=== PATIENT | female | born 1930 | race Caucasian/White ===

== ENCOUNTER 2017-01-16 21:20 | Emergency (ER) | payer MEDICARE, BC ==
[2017-01-16 21:33] VITALS: RESP 18
[2017-01-16] MEDS ORDERED: DIAZEPAM 5 MG/ML 2 ML SYRINGE IVP STA (22:23)
[2017-01-16 23:30] LABS: Basophils # (A) 0.1 k/uL (0-0.2); Basophils % (A) 1 %; CH 32.3; CHCM 32.8; Eosinophils # (A) 0.4 k/uL (0-0.7); Eosinophils % (A) 6 %; HCT 42.7 % (34.0-46.0); HDW 2.09; HGB 13.6 gm/dL (11.4-16.0); Luc # (Auto) 0.17; Luc % (Auto) 2; Lymphocytes # (A) 1.3 k/uL (1.0-4.8); Lymphocytes % (A) 18 %; MCH 31.6 pg (25.0-35.0); MCHC 31.9 g/dL (31.0-37.0); Mean Platelet Volume 7.4; Monocytes # (A) 0.5 k/uL (0-1.0); Monocytes % (A) 7 %; Neutrophils # (A) 4.7 k/uL (1.3-7.7); Neutrophils % (A) 66 %; RBC 4.31 m/uL (3.80-5.40); RDW 13.6 % (11.5-15.5); WBC 7.1 k/uL (3.8-10.6); WBC (Perox) 7.34
[2017-01-16 23:40] LABS: ALT 25 U/L (9-52); AST 22 U/L (14-36); Alkaline Phosphatase 93 U/L (38-126); Anion Gap 8 mmol/L; Blood Urea Nitrogen 24 mg/dL (7-17); Calcium 9.5 mg/dL (8.4-10.2); Carbon Dioxide 26 mmol/L (22-30); Chloride 107 mmol/L (98-107); Glucose 81 mg/dL (74-99); Non-African American GFR(MDRD) 59 (>60 ml/min/1.73 sqM); Potassium 4.2 mmol/L (3.5-5.1); Sodium 141 mmol/L (137-145); Total Bilirubin 0.4 mg/dL (0.2-1.3); Total Protein 5.8 g/dL (6.3-8.2)
[2017-01-16 23:47] LABS: INR 1.1 (<1.2)
--- NOTE | 2017-01-16 23:52 | ED ---
Lower Extremity Injury HPI - General Chief Complaint: Extremity Injury, Lower Stated Complaint: Medication Reaction Time Seen by Provider: 01/16/17 21:34 Source: patient, EMS, RN notes reviewed, old records reviewed Mode of arrival: EMS Limitations: physical limitation - History of Present Illness Initial Comments: 6-year-old female presents emergency Department chief complaint of twitching in her back for the past few hours. Patient reports she was feeling well until 7 PM, when she started getting sharp spasms that radiated from her lower back into her left leg and upper back. Patient reports that every few seconds she will get a sharp pain and feeling she has to twitch. Patient denies any loss of bowel or bladder control. She is incontinent chronically and that his head no any abnormalities. Patient reports no fevers or chills. Denies any other associated symptoms. She reports that she went to [employer] earlier today and did some light activity. She reports that she is on multiple medications, pain medications, and angiolytics.Patient denies any recent fever, chills, shortness of breath, chest pain, back pain, abdominal pain, nausea vomiting, numbness or tingling, dysuria or hematuria, constipation or diarrhea, headaches or visual changes, or any other current symptoms - Related Data Home Medications Medication Instructions Recorded Confirmed ALPRAZolam [Xanax] 0.25 mg PO BID PRN 01/16/17 01/16/17 ALPRAZolam [Xanax] 0.5 mg PO HS@1800 01/16/17 01/16/17 Acetaminophen Tab [Tylenol Tab] 500 mg PO HS@2000 01/16/17 01/16/17 Acetaminophen [Tylenol] 650 mg PO Q4H 01/16/17 01/16/17 Aspirin EC [Ecotrin Low Dose] 81 mg PO DAILY@79901/16/17 01/16/17 Citalopram Hydrobromide [CeleXA] 20 mg PO DAILY@79901/16/17 01/16/17 Diclofenac Sodium Gel [Voltaren 4 gm TOPICAL QID@00,06,12,18 01/16/17 01/16/17 Gel] Donepezil [Aricept] 5 mg PO HS@1800 01/16/17 01/16/17 Furosemide [Lasix] 10 mg PO DAILY@79901/16/17 01/16/17 HYDROcodone/APAP 10-325MG [[place] 1 tab PO DAILY@1200 PRN 01/16/17 01/16/17 10-325] HYDROcodone/APAP 10-325MG [[place] 1 tab PO Q8H PRN 01/16/17 01/16/17 10-325] Levothyroxine Sodium [Synthroid] 75 mcg PO DAILY@0800 01/16/17 01/16/17 Lisinopril [Zestril] 5 mg PO DAILY@0800 01/16/17 01/16/17 Multivitamins, Thera [Multivitamin 1 tab PO DAILY@0800 01/16/17 01/16/17 (formulary)] Potassium Chloride ER [K-Dur 10] 10 meq PO DAILY@0800 01/16/17 01/16/17 QUEtiapine [SEROquel] 25 mg PO HS@1800 01/16/17 01/16/17 White Petrolatum/Mineral Oil 1 applic BOTH EYES HS@1800 01/16/17 01/16/17 cycloSPORINE 0.05% OPHTH SOLN 1 drop BOTH EYES BID@0800,1800 01/16/17 01/16/17 [Restasis] fentaNYL 12MCG/HR PATCH [Duragesic 1 patch TRANSDERM Q72H 01/16/17 01/16/17 12MCG/HR] fentaNYL 75MCG/HR PATCH [Duragesic 1 patch TRANSDERM Q72H 01/16/17 01/16/17 75MCG/HR] traMADol HCL [traMADol HCL ER] 100 mg PO DAILY@0800 01/16/17 01/16/17 Previous Rx's Medication Instructions Recorded Cyclobenzaprine [Flexeril] 10 mg PO TID #20 tab 01/17/17 Allergies Allergy/AdvReac Type Severity Reaction Status Date / Time acetaminophen [From Percocet] Allergy Unknown Verified 01/16/17 21:52 gabapentin Allergy Unknown Verified 01/16/17 21:52 nortriptyline Allergy Unknown Verified 01/16/17 21:52 oxycodone [From Percocet] Allergy Unknown Verified 01/16/17 21:52 sertraline [From Zoloft] Allergy Unknown Verified 01/16/17 21:52 trazodone [From Desyrel] Allergy Unknown Verified 08/13/17 21:52 Review of Systems ROS Statement: Those systems with pertinent positive or pertinent negative responses have been documented in the HPI. ROS Other: All systems not noted in ROS Statement are negative. Past Medical History History of Any Multi-Drug Resistant Organisms: None Reported Past Surgical History: Orthopedic Surgery Additional Past Surgical History / Comment(s): rugery on bilat knees, right hip , and bilat feet. Right mastectomy. Past Psychological History: Anxiety Smoking Status: Never smoker Past Alcohol Use History: None Reported Past Drug Use History: None Reported General Exam - General Exam Comments Initial Comments: This is an 86-year-old female. Patient does not appear to be in any acute distress. Limitations: physical limitation General appearance: alert, in no apparent distress Head exam: Present: atraumatic, normocephalic, normal inspection Eye exam: Present: normal appearance, PERRL, EOMI. Absent: scleral icterus, conjunctival injection, periorbital swelling ENT exam: Present: normal exam, mucous membranes moist Neck exam: Present: normal inspection. Absent: tenderness, meningismus, lymphadenopathy Respiratory exam: Present: normal lung sounds bilaterally. Absent: respiratory distress, wheezes, rales, rhonchi, stridor Cardiovascular Exam: Present: regular rate, normal rhythm, normal heart sounds. Absent: systolic murmur, diastolic murmur, rubs, gallop, clicks GI/Abdominal exam: Present: soft, normal bowel sounds. Absent: distended, tenderness, guarding, rebound, rigid Extremities exam: Present: normal inspection, full ROM, normal capillary refill. Absent: tenderness, pedal edema, joint swelling, calf tenderness Back exam: Present: normal inspection Neurological exam: Present: alert, oriented X3, CN II-XII intact Expanded Patient oriented to: Present: person, place, time Speech: Present: fluid speech Cranial nerves: EOM's Intact: Normal, Gag Reflex: Normal, Tongue Deviation: Normal, Facial Sensation: Normal Cerebellar function: Finger to Nose: Normal Upper motor neuron: Pronator Drift: Normal Sensory exam: Upper Extremity Light Touch: Normal, Lower Extremity Light Touch: Normal Motor strength exam: RUE: 5, LUE: 5, RLE: 5, LLE: 5 Eye Response: (4) open spontaneously Motor Response: (6) obeys commands Verbal Response: (5) oriented [place] Total: 15 Psychiatric exam: Present: normal affect, normal mood Skin exam: Present: warm, dry, intact, normal color. Absent: rash Course Vital Signs 01/16/17 01/16/17 01/17/17 21:23 23:11 00:26 Temperature 98.2 F 99.5 F 98.3 F Pulse Rate 79 84 70 Respiratory 18 18 18 Rate Blood Pressure 168/99 166/90 169/89 O2 Sat by Pulse 94 L 91 L 95 Oximetry Medical Decision Making - Medical Decision Making This is an 86-year-old female presenting to emergency department with a few hours of severe muscle twitching. Patient reports that she is on multiple pain medication and anxiolytics. She denies any falls or any reasons for the twitching. Patient appears to have some myoclonic twitching. It does seem to be somewhat distractible. Patient was given IV fluids and lab work was obtained. Patient was given 5 mg of Valium. Patient was then reevaluated and her muscle spasms have stopped. She was sleeping comfortably. On reevaluation patient reports that they seem to reoccur. However again when I do distract the patient she does stop twitching. Patient lumbar spine x-ray shows some serious degenerative changes, however there is no acute malalignment. Rectal tone is normal, and otherwise patient has no neurological deficits. Patient was informed about the results. Her son also was informed. Discussed that she needs a follow-up with neurology and her primary care physician. Patient was given another 5 mg IM of Valium. Patient will be discharged back to her facility. Discussed close follow-up with her primary care physician. - Lab Data Result diagrams: 01/16/17 23:20 01/16/17 23:20 Lab Results 01/16/17 01/16/17 01/16/17 Range/Units 23:20 23:20 23:20 WBC 7.1 (3.8-10.6) k/uL RBC 4.31 (3.80-5.40) m/uL Hgb 13.6 (11.4-16.0) gm/dL Hct 42.7 (34.0-46.0) % MCV 99.0 (80.0-100.0) fL MCH 31.6 (25.0-35.0) pg MCHC 31.9 (31.0-37.0) g/dL RDW 13.6 (11.5-15.5) % Plt Count 204 (150-450) k/uL Neutrophils % 66 % Lymphocytes % 18 % Monocytes % 7 % Eosinophils % 6 % Basophils % 1 % Neutrophils # 4.7 (1.3-7.7) k/uL Lymphocytes # 1.3 (1.0-4.8) k/uL Monocytes # 0.5 (0-1.0) k/uL Eosinophils # 0.4 (0-0.7) k/uL Basophils # 0.1 (0-0.2) k/uL PT 11.0 (9.0-12.0) sec INR 1.1 (<1.2) APTT 20.9 L (22.0-30.0) sec Sodium 141 (137-145) mmol/L Potassium 4.2 (3.5-5.1) mmol/L Chloride 107 (98-107) mmol/L Carbon Dioxide 26 (22-30) mmol/L Anion Gap 8 mmol/L BUN 24 H (7-17) mg/dL Creatinine 0.90 (0.52-1.04) mg/dL Est GFR (MDRD) Af Amer >60 (>60 ml/min/1.73 sqM) Est GFR (MDRD) Non-Af 59 (>60 ml/min/1.73 sqM) Glucose 81 (74-99) mg/dL Calcium 9.5 (8.4-10.2) mg/dL Total Bilirubin 0.4 (0.2-1.3) mg/dL AST 22 (14-36) U/L ALT 25 (9-52) U/L Alkaline Phosphatase 93 (38-126) U/L Total Protein 5.8 L (6.3-8.2) g/dL Albumin 3.2 L (3.5-5.0) g/dL Urine Color Urine Appearance (Clear) Urine pH (5.0-8.0) Ur Specific [place] (1.001-1.035) Urine Protein (Negative) Urine Glucose (UA) (Negative) Urine Ketones (Negative) Urine Blood (Negative) Urine Nitrite (Negative) Urine Bilirubin (Negative) Urine Urobilinogen (<2.0) mg/dL Ur Leukocyte Esterase (Negative) 01/16/17 Range/Units 23:32 WBC (3.8-10.6) k/uL RBC (3.80-5.40) m/uL Hgb (11.4-16.0) gm/dL Hct (34.0-46.0) % MCV (80.0-100.0) fL MCH (25.0-35.0) pg MCHC (31.0-37.0) g/dL RDW (11.5-15.5) % Plt Count (150-450) k/uL Neutrophils % % Lymphocytes % % Monocytes % % Eosinophils % % Basophils % % Neutrophils # (1.3-7.7) k/uL Lymphocytes # (1.0-4.8) k/uL Monocytes # (0-1.0) k/uL Eosinophils # (0-0.7) k/uL Basophils # (0-0.2) k/uL PT (9.0-12.0) sec INR (<1.2) APTT (22.0-30.0) sec Sodium (137-145) mmol/L Potassium (3.5-5.1) mmol/L Chloride (98-107) mmol/L Carbon Dioxide (22-30) mmol/L Anion Gap mmol/L BUN (7-17) mg/dL Creatinine (0.52-1.04) mg/dL Est GFR (MDRD) Af Amer (>60 ml/min/1.73 sqM) Est GFR (MDRD) Non-Af (>60 ml/min/1.73 sqM) Glucose (74-99) mg/dL Calcium (8.4-10.2) mg/dL Total Bilirubin (0.2-1.3) mg/dL AST (14-36) U/L ALT (9-52) U/L Alkaline Phosphatase (38-126) U/L Total Protein (6.3-8.2) g/dL Albumin (3.5-5.0) g/dL Urine Color Light Yellow Urine Appearance Clear (Clear) Urine pH 6.5 (5.0-8.0) Ur Specific [place] 1.007 (1.001-1.035) Urine Protein Negative (Negative) Urine Glucose (UA) Negative (Negative) Urine Ketones Negative (Negative) Urine Blood Negative (Negative) Urine Nitrite Negative (Negative) Urine Bilirubin Negative (Negative) Urine Urobilinogen <2.0 (<2.0) mg/dL Ur Leukocyte Esterase Negative (Negative) - Radiology Data Radiology results: report reviewed Study is limited by the right lower lumbar scoliosis, multilevel spondylosis and discogenic change and osteopenia. Difficult to exclude mild compression deformity at L3 given scoliosis possibility of mild superior endplate compression of formula L4. No evidence of malalignment. Disposition Clinical Impression: Degenerative disc disease, lumbar, Muscle spasm Disposition: HOME SELF-CARE Condition: Good Instructions: Muscle Spasm (ED) Additional Instructions: Denies to follow-up with her primary care physician within the next 1-2 days. Take the muscle relaxers as prescribed. Take all your at-home medications well. Return to the emergency department if any alarming signs or symptoms occur. Prescriptions: Cyclobenzaprine [Flexeril] 10 mg PO TID #20 tab Referrals: Itz Parekh MD [Primary Care Provider] - 1-2 days Guzman Perry MD [STAFF PHYSICIAN] - 1-2 days Time of Disposition: 00:40
[2017-01-17 00:01] LABS: Partial Thromboplastin Time 20.9 sec (22.0-30.0)
[2017-01-17 00:13] LABS: Appearance,Urine Clear (Clear); Bilirubin,Urine Negative (Negative); Glucose,Urine (UA) Negative (Negative); Ketones,Urine Negative (Negative); Leukocyte Esterase,Urine Negative (Negative); Nitrite,Urine Negative (Negative); PH, Urine 6.5 (5.0-8.0); Protein,Urine Negative (Negative); Specific Gravity,Urine 1.007 (1.001-1.035); UA Billing (MACRO vs. MICRO) CHEM; Urobilinogen,Urine <2.0 mg/dL (<2.0)
[2017-01-17 00:30] VITALS: BP 169/89; PULSE 70; TEMP 98.3
--- NOTE | 2017-01-17 00:35 | XR ---
History: Reason: Pain Exam: XR L SPINE Comparison: None available FINDINGS: The study is significantly limited by the rightward thoracolumbar scoliosis, multilevel spondylosis/discogenic change and osteopenia. Difficult to exclude a mild compression deformity of L3 given the scoliosis and possibility of a mild superior endplate compression deformity at L4. No evidence of malalignment. Likely bilateral hip replacement/hardware partially imaged. Status post cholecystectomy. IMPRESSION: The study is significantly limited by the rightward thoracolumbar scoliosis, multilevel spondylosis/discogenic change and osteopenia. Difficult to exclude a mild compression deformity of L3 given the scoliosis and possibility of a mild superior endplate compression deformity at L4. No evidence of malalignment.
[2017-01-17] MEDS ORDERED: DIAZEPAM 5 MG/ML 2 ML SYRINGE IM ONE (00:49)
== END 2017-01-17 01:09 | disposition home or self-care (01) ==
LOC: EC 21:20
DX: M51.36 Other intervertebral disc degeneration, lumbar region (principal); M62.830 Muscle spasm of back; F41.9 Anxiety disorder, unspecified; Z79.1 Long term (current) use of non-steroidal anti-inflammatories (NSAID); Z79.82 Long term (current) use of aspirin; Z79.891 Long term (current) use of opiate analgesic; Z79.899 Other long term (current) drug therapy; Z88.5 Allergy status to narcotic agent; Z88.6 Allergy status to analgesic agent; Z88.8 Allergy status to other drugs, medicaments and biological substances
CPT/HCPCS: 36415; 80053; 85025; 85610; 85730; 81003; 72100; 99284; 96374; 96372; J3360 ×2

== ENCOUNTER 2018-04-24 12:42 | Inpatient (IN) | payer MEDICARE, BC ==
--- NOTE | 2018-04-24 13:04 | ED ---
General Adult HPI - General Chief complaint: Skin/Abscess/Foreign Body Stated complaint: unresponsive Time Seen by Provider: 04/24/18 12:42 Source: patient, EMS, RN notes reviewed Mode of arrival: wheelchair Limitations: altered mental status, physical limitation - History of Present Illness Initial comments: Patient is a 87-year-old female presenting to the emergency department from [facility] for choking episode. Patient was choking and started to become unresponsive and vomited and improved. EMS states patient did have some Limited speech and was breathing near normal in route. Upon arrival to the emergency department patient became cyanotic with respiratory arrest. Patient nonverbal and unable to provide any further history. - Related Data Home Medications Medication Instructions Recorded Confirmed ALPRAZolam [Xanax] 0.5 mg PO HS PRN 01/16/17 04/24/18 Acetaminophen [Tylenol] 650 mg PO Q4H PRN 01/16/17 04/24/18 Aspirin EC [Ecotrin Low Dose] 81 mg PO DAILY@79901/16/17 04/24/18 Citalopram Hydrobromide [CeleXA] 20 mg PO DAILY@79901/16/17 04/24/18 Diclofenac Sodium Gel [Voltaren 4 gm TOPICAL BID@799,199901/16/17 04/24/18 Gel] Donepezil [Aricept] 5 mg PO HS 01/16/17 04/24/18 Furosemide [Lasix] 40 mg PO DAILY@79901/16/17 04/24/18 HYDROcodone/APAP 10-325MG [[place] 1 tab PO BID PRN 01/16/17 04/24/18 10-325] Levothyroxine Sodium [Synthroid] 75 mcg PO DAILY@79901/16/17 04/24/18 Multivitamins, Thera [Multivitamin 1 tab PO DAILY@79901/16/17 04/24/18 (formulary)] Potassium Chloride ER [K-Dur 10] 10 meq PO DAILY@79901/16/17 04/24/18 QUEtiapine [SEROquel] 25 mg PO HS@199901/16/17 04/24/18 White Petrolatum/Mineral Oil 1 applic BOTH EYES HS@199901/16/17 04/24/18 fentaNYL 75MCG/HR PATCH [Duragesic 1 patch TRANSDERM Q72H 01/16/17 04/24/18 75MCG/HR] Acetaminophen Tab [Tylenol Tab] 500 mg PO HS@199904/24/18 04/24/18 Amoxicillin 2,000 mg PO ONCE PRN 04/24/18 04/24/18 Artificial Tears-Hypromellose 1 drops BOTH EYES DAILY PRN 04/24/18 04/24/18 [Artificial Tear Drops] Cyclobenzaprine [Flexeril] 10 mg PO BID PRN 04/24/18 04/24/18 Gentamicin 0.1% Cream 1 applic TOPICAL DAILY 04/24/18 04/24/18 Lisinopril [Zestril] 10 mg PO DAILY 04/24/18 04/24/18 Oxybutynin Chloride [Ditropan XL] 5 mg PO BID@08,199904/24/18 04/24/18 rOPINIRole HCL 0.5 mg PO HS@199904/24/18 04/24/18 Allergies Allergy/AdvReac Type Severity Reaction Status Date / Time acetaminophen [From Percocet] Allergy Unknown Verified 04/24/18 13:30 gabapentin Allergy Unknown Verified 04/24/18 13:30 nortriptyline Allergy Unknown Verified 04/24/18 13:30 oxycodone [From Percocet] Allergy Unknown Verified 04/24/18 13:30 sertraline [From Zoloft] Allergy Unknown Verified 04/24/18 13:30 trazodone [From Desyrel] Allergy Unknown Verified 04/24/18 13:30 Review of Systems ROS Statement: Those systems with pertinent positive or pertinent negative responses have been documented in the HPI. ROS Other: All systems not noted in ROS Statement are negative. Limitations: ROS unobtainable due to patients medical condition Respiratory: Reports: dyspnea Past Medical History Past Medical History: Cancer, Dementia, Hypertension, Musculoskeletal Disorder, Thyroid Disorder Additional Past Medical History / Comment(s): hx. breast cancer, current UTI History of Any Multi-Drug Resistant Organisms: None Reported Past Surgical History: Joint Replacement, Orthopedic Surgery Additional Past Surgical History / Comment(s): surgery on bilat knees, right hip replaced, and bilat feet. Right mastectomy. Past Anesthesia/Blood Transfusion Reactions: No Reported Reaction Past Psychological History: Anxiety Smoking Status: Never smoker - Past Family History Mother Family Medical History: Unable to Obtain General Exam Limitations: altered mental status, physical limitation General appearance: other (Upon arrival patient was cyanotic however still did have pulse. Physical exam repeated following patient becoming more responsive.) Head exam: Present: atraumatic Eye exam: Present: normal appearance, PERRL ENT exam: Present: normal oropharynx (Limited evaluation) Neck exam: Present: normal inspection Respiratory exam: Present: normal lung sounds bilaterally Cardiovascular Exam: Present: regular rate, normal rhythm, other (Right mastectomy) GI/Abdominal exam: Present: soft. Absent: tenderness Extremities exam: Present: normal inspection Neurological exam: Present: alert. Absent: motor sensory deficit Expanded Patient oriented to: Present: person. Absent: place, time Speech: Present: fluid speech Motor strength exam: RUE: 5, LUE: 5, RLE: 5, LLE: 5 Psychiatric exam: Present: normal affect, normal mood Skin exam: Present: normal color, cyanosis (Upon arrival that resolved) Course Vital Signs 04/24/18 12:42 Pulse Rate 60 Respiratory 16 Rate Blood Pressure 127/109 O2 Sat by Pulse 92 L Oximetry - Reevaluation(s) Reevaluation #1: 04/24/18 12:58 Attempt to intubate patient following bag ventilation. Unable to view airway with laryngoscope secondary to patient biting down with her teeth. I was able to do some suctioning of the airway without improvement. IV line was being placed while medications were being drawn for sedation. During this time patient did start to breathe some on her own and did attempt to speak however was difficult to understand her. I did suction patient again and a large chunk of meat approximately 3 x 3 cm was removed. Patient is now breathing normally at this time and has no complaints. Physical exam completed following this. Patient no longer requires intubation. Family was contacted earlier and did want patient to be intubated if needed or choking and aspiration. EKG Findings - EKG Comments: EKG Findings:: Junctional rhythm at 60. QRS 94. QT 380. QTC 380. Normal axis. Normal QRS. Nonspecific ST-T. Medical Decision Making - Medical Decision Making Patient reevaluated and resting comfortably in bed. No respiratory distress. Family updated. Case was discussed in detail with Dr. Deal, covering for Dr. Christopher, who will admit for observation. - Lab Data Result diagrams: 04/24/18 12:53 04/24/18 12:53 Lab Results 04/24/18 04/24/18 04/24/18 Range/Units 12:53 12:53 12:53 WBC 11.1 H (3.8-10.6) k/uL RBC 4.58 (3.80-5.40) m/uL Hgb 13.9 (11.4-16.0) gm/dL Hct 45.7 (34.0-46.0) % MCV 99.7 (80.0-100.0) fL MCH 30.3 (25.0-35.0) pg MCHC 30.4 L (31.0-37.0) g/dL RDW 13.4 (11.5-15.5) % Plt Count 315 (150-450) k/uL Neutrophils % 65 % Lymphocytes % 20 % Monocytes % 5 % Eosinophils % 6 % Basophils % 1 % Neutrophils # 7.2 (1.3-7.7) k/uL Lymphocytes # 2.2 (1.0-4.8) k/uL Monocytes # 0.5 (0-1.0) k/uL Eosinophils # 0.7 (0-0.7) k/uL Basophils # 0.1 (0-0.2) k/uL Hypochromasia Moderate PT 9.8 (9.0-12.0) sec INR 1.0 (<1.2) APTT 22.0 (22.0-30.0) sec Sodium 137 (137-145) mmol/L Potassium 4.7 (3.5-5.1) mmol/L Chloride 102 (98-107) mmol/L Carbon Dioxide 20 L (22-30) mmol/L Anion Gap 15 mmol/L BUN 36 H (7-17) mg/dL Creatinine 2.02 H (0.52-1.04) mg/dL Est GFR (CKD-EPI)AfAm 25 (>60 ml/min/1.73 sqM) Est GFR (CKD-EPI)NonAf 21 (>60 ml/min/1.73 sqM) Glucose 214 H (74-99) mg/dL Calcium 9.9 (8.4-10.2) mg/dL Total Bilirubin 0.5 (0.2-1.3) mg/dL AST 37 H (14-36) U/L ALT 16 (9-52) U/L Alkaline Phosphatase 110 (38-126) U/L Total Protein 6.7 (6.3-8.2) g/dL Albumin 3.7 (3.5-5.0) g/dL - Radiology Data Radiology results: image reviewed (Chest x-ray shows possible atelectasis. Ectatic aorta.) Critical Care Time Critical Care Time: Yes Total Critical Care Time: 34 Disposition Clinical Impression: Respiratory arrest, Choking episode Disposition: ADMITTED IP TO THIS HOSP Is patient prescribed a controlled substance at d/c from ED?: No Referrals: Itz Parekh MD [Primary Care Provider] - 1-2 days Decision Time: 14:02
[2018-04-24 13:09] LABS: Basophils # (A) 0.1 k/uL (0-0.2); Basophils % (A) 1 %; Eosinophils # (A) 0.7 k/uL (0-0.7); Eosinophils % (A) 6 %; HCT 45.7 % (34.0-46.0); HGB 13.9 gm/dL (11.4-16.0); Hypochromasia Moderate; Lymphocytes # (A) 2.2 k/uL (1.0-4.8); Lymphocytes % (A) 20 %; MCH 30.3 pg (25.0-35.0); MCHC 30.4 g/dL (31.0-37.0); MCV 99.7 fL (80.0-100.0); Mean Platelet Volume 7.5; Monocytes # (A) 0.5 k/uL (0-1.0); Monocytes % (A) 5 %; Neutrophils # (A) 7.2 k/uL (1.3-7.7); Neutrophils % (A) 65 %; Platelet Count 315 k/uL (150-450); RBC 4.58 m/uL (3.80-5.40); RDW 13.4 % (11.5-15.5); WBC 11.1 k/uL (3.8-10.6)
[2018-04-24 13:20] LABS: Albumin 3.7 g/dL (3.5-5.0); Calcium 9.9 mg/dL (8.4-10.2); Potassium 4.7 mmol/L (3.5-5.1); Total Bilirubin 0.5 mg/dL (0.2-1.3); Total Protein 6.7 g/dL (6.3-8.2)
[2018-04-24 13:23] LABS: Prothrombin Time 9.8 sec (9.0-12.0)
--- NOTE | 2018-04-24 13:43 | XR ---
EXAMINATION TYPE: XR chest 2V DATE OF EXAM: 04/24/2018 COMPARISON: Prior chest x-ray 05/28/2013 HISTORY: Difficulty breathing TECHNIQUE: Frontal and lateral views of the chest are obtained. FINDINGS: There is no focal air space opacity, pleural effusion, or pneumothorax seen. The cardiac silhouette size is thought to be stable, borderline enlarged. There is marked arthropathy within the shoulders, remodeling is noted, there may be chronic rotator cuff tears, remote trauma to the proxima l left humerus suspected. There is eventration of the right hemidiaphragm. The aorta is dense and rosaura ears ectatic. Patient is rotated. Multilevel spondylosis noted especially in the lumbar spine. Linear focus of increased attenuation of the left costophrenic angle may represent subsegmental atelectasis . IMPRESSION: Suspect basilar atelectasis. Aortic aneurysm is possible.
[2018-04-24] MEDS ORDERED: NALOXONE 0.4 MG/ML 1 ML VIAL IV PRN (14:03)
[2018-04-24] MEDS ORDERED: SODIUM CHLORIDE 0.9% 1,000 ML IV SCH (14:15)
[2018-04-24] MEDS ORDERED: PANTOPRAZOLE 40 MG/10 ML VIAL IVP STA (16:54)
[2018-04-24 20:51] LABS: Basophils % (A) 0 %; Eosinophils # (A) 0.1 k/uL (0-0.7); Eosinophils % (A) 0 %; HCT 45.9 % (34.0-46.0); HGB 14.6 gm/dL (11.4-16.0); Hypochromasia Slight; Lymphocytes # (A) 0.3 k/uL (1.0-4.8); Lymphocytes % (A) 2 %; MCH 30.9 pg (25.0-35.0); MCHC 31.8 g/dL (31.0-37.0); MCV 97.3 fL (80.0-100.0); Mean Platelet Volume 6.9; Monocytes # (A) 0.5 k/uL (0-1.0); Monocytes % (A) 3 %; Neutrophils % (A) 94 %; Platelet Count 262 k/uL (150-450); RBC 4.72 m/uL (3.80-5.40); RDW 13.4 % (11.5-15.5)
[2018-04-24] MEDS ORDERED: PANTOPRAZOLE 40 MG/10 ML VIAL IVP SCH (21:00)
[2018-04-24] MEDS ORDERED: CYCLOBENZAPRINE 10 MG TAB PO PRN (22:32)
[2018-04-24] MEDS ORDERED: HYDROcodone/APAP 10-325MG 1 EACH TAB PO PRN (22:32)
[2018-04-24] MEDS ORDERED: ALPRAZolam 0.5 MG TAB PO PRN (22:32)
[2018-04-24] MEDS ORDERED: ACETAMINOPHEN TAB 325 MG TAB PO PRN (22:32)
[2018-04-24] MEDS ORDERED: ARTIFICIAL TEARS-HYPROMELLOSE DROPS 15 ML BTL BOTH EYES PRN (22:32)
--- NOTE | 2018-04-24 23:24 | HP ---
HISTORY AND PHYSICAL DATE OF ADMISSION: 04/24/2018. DATE OF SERVICE: 04/24/2018. PRESENTING COMPLAINT: Choking on food. HISTORY OF PRESENTING COMPLAINT: This is a pleasant 87-year-old patient who follows with visiting physicians, Dr. Parekh. The patient has a habit of eating her food fast. Today she was doing the same and a piece of the meat got stuck, she choked on the same. Heimlich maneuver was performed. She was still choking, getting blue. EMS was called out, who brought the patient down to the ER and then a piece of meat was extracted from the throat. It was a pretty good size. The patient was exhausted, tired, run down. He was also found to be running a low blood pressure. The patient was discovered to be in acute renal failure. BUN and creatinine of 36 and 2.02. The patient's last labs from a year ago were normal. Patient is on RANDI inhibitor. No fevers or chills. Patient is feeling tired and exhausted. The patient's son is at the bedside. PAST MEDICAL HISTORY: The patient's chronic stable medical conditions include some forgetfulness, hypertension, osteoarthritis, hypothyroid. REVIEW OF SYSTEMS: CONSTITUTIONAL: Tired. HEENT: Decreased hearing. RESPIRATORY: As above. CARDIOVASCULAR: None. GASTROINTESTINAL: As above. GENITOURINARY: None. MUSCULOSKELETAL: Arthritic pain in the joints. DERMATOLOGICAL: None. PSYCHIATRY: Forgetful. NEUROLOGICAL: None. PAST MEDICAL HISTORY: Dementia, hypertension, osteoarthritis, hypothyroid, breast cancer with surgery, bladder and bowel incontinence. PAST SURGICAL HISTORY: Hysterectomy, joint replacement, bilateral knee replacement, bilateral hip replacement, bilateral foot surgery, right mastectomy, left shoulder surgery. PSYCH HISTORY: History of anxiety. SOCIAL HISTORY: Patient lives at [facility], now [facility]. The patient is wheelchair bound and uses a Tomasa lift to get into a chair. No smoking. No alcohol. FAMILY HISTORY: The patient does not remember. HOME MEDICATIONS: 1. Amoxicillin 2000 mg once. 2. gel is 4 g topical b.i.d. 3. Flexeril 10 mg p.o. b.i.d. p.r.n. 4. Tylenol 650 mg every 4 p.r.n. 5. Artificial Tears 1 drop to both eyes daily p.r.n. 6. [place] 10 1 tab b.i.d. p.r.n. 7. Xanax 0.5 p.o. at bedtime p.r.n. 8. White petroleum mineral oil 1 application topical to both eyes at bedtime. 9. Ropinirole 0.5 every 8 hours p.o. at bedtime. 10.Seroquel 25 mg p.o. at bedtime. 11.Potassium 10 mEq p.o. daily. 12.Ditropan XL 5 mg p.o. b.i.d. 13.Multivitamin 1 tablet p.o. daily. 14.Zestril 10 mg p.o. daily. 15.Synthroid 75 mcg p.o. daily. 16.Gentamicin 0 1.1% topical daily. 17.Duragesic 75 mcg 1 patch every 72 hours. 18.Lasix 40 mg p.o. daily. 19.Aricept 5 mg p.o. at bedtime. 20.Celexa 20 mg p.o. daily. 21.Aspirin 81 mg p.o. daily. ALLERGIES: Acetaminophen, Gabapentin, nortriptyline, Percocet, Zoloft, trazodone. PHYSICAL EXAMINATION: VITAL SIGNS: Vital signs on presentation, pulse 60, respirations 16, blood pressure 127/109, pulse ox 92 percent on room air. Later on the blood pressure was down to the 90s systolic. GENERAL APPEARANCE: Average built. BMI 30. Lying in bed, tired-appearing. EYES: Pupils equal. Conjunctivae normal. HEENT: External nose and ears normal. Oral cavity normal. NECK: JVD unable to assess. Mass not palpable. Respiratory effort normal. LUNGS: Decreased breath sounds. CARDIOVASCULAR: 1st and 2nd sounds. No edema. ABDOMEN: Soft, nontender. Liver and spleen not palpable. LYMPHATIC: No lymph nodes in the neck or axillae. PSYCHIATRY: The patient is able to answer simple questions. NEUROLOGICAL: Pupils equal. No facial asymmetry. Does move all 4 limbs. MUSCULOSKELETAL: Evidence of osteoarthritis, especially in the hands. INVESTIGATIONS: White count 11, hemoglobin 13.9, potassium 4.7, BUN 36, creatinine 2.02. Over a year ago the patient's renal function was normal. EKG tracing personally reviewed by me shows possible junctional rhythm at 60 beats per minute. Chest x-ray film, personally reviewed by me, shows unfolding of the aorta. No venous prominence. ASSESSMENT: 1. Acute choking on a large piece of meat, since patient eats fast, causing acute respiratory distress. Settled after the foreign body/piece of meat was extracted. 2. Possible acute renal failure from decreased oral intake and patient being on RANDI inhibitor. 3. Junctional rhythm on EKG. 4. Primary osteoarthritis. 5. 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 6. Essential hypertension. 7. Hypovolemia, probably from volume loss. 8. Chronic medical debility. The patient is pretty much wheelchair-bound and uses a Tomasa lift to get in the chair. 9. Restless leg syndrome. PLAN: Care was discussed at length with the son at the bedside. Aspiration precautions will be done. We will hold off patient's Zestril and Lasix. We will hydrate the patient. Will do renal ultrasound. Repeat electrolytes in the morning. Of course patient's Lasix has been held off. MMODL / IJN: [id number] /
[2018-04-24] MEDS: LACTATED RINGERS 1,000 ML IV SCH (23:59)
[2018-04-25 07:04] LABS: Glucose,Whole Blood 102 mg/dL (75-99)
[2018-04-25] MEDS ORDERED: LISINOPRIL 10 MG TAB PO SCH (09:00)
--- NOTE | 2018-04-25 10:00 | US ---
EXAMINATION TYPE: US kidneys/renal and bladder DATE OF EXAM: 04/25/2018 COMPARISON: NONE CLINICAL HISTORY: renal failure; patient stated had history of renal stones EXAM MEASUREMENTS: US is technically limited at bedside with patient's decreased range of motion for organizational effectiveness consultant to view kidneys. Right Kidney: 7.7 x 4.5 x 4.1 cm Left Kidney: 7.2 x 4.0 x 4.9 cm Post Void Residual Volume: not assessed on inpatient Right Kidney: small for size Left Kidney: small for size Bladder: wnl Bilateral Jets seen: yes Cortical medullary differentiation is maintained bilaterally. Some cortical thinning noted in the lef t kidney. No evident hydronephrosis. No evident renal mass or pathologic calcification. There is no ascites. IMPRESSION: Small renal sizes. Additional findings above.
[2018-04-25 10:29] LABS: Basophils % (A) 0 %; Eosinophils % (A) 0 %; HCT 40.3 % (34.0-46.0); HGB 12.5 gm/dL (11.4-16.0); Lymphocytes # (A) 0.7 k/uL (1.0-4.8); Lymphocytes % (A) 5 %; MCH 30.1 pg (25.0-35.0); MCHC 31.1 g/dL (31.0-37.0); MCV 96.7 fL (80.0-100.0); Monocytes # (A) 0.8 k/uL (0-1.0); Monocytes % (A) 6 %; Neutrophils # (A) 11.7 k/uL (1.3-7.7); Neutrophils % (A) 88 %; Platelet Count 237 k/uL (150-450); RBC 4.17 m/uL (3.80-5.40); RDW 13.5 % (11.5-15.5); WBC 13.3 k/uL (3.8-10.6)
[2018-04-25 10:41] LABS: Potassium 4.6 mmol/L (3.5-5.1)
[2018-04-25 11:27] LABS: Glucose,Whole Blood 108 mg/dL (75-99)
[2018-04-25] MEDS: MULTIVITAMINS, THERA 1 EACH TAB PO SCH (12:02)
[2018-04-25] MEDS: ASPIRIN 81 MG PO SCH (12:02)
[2018-04-25] MEDS: CITALOPRAM HYDROBROMIDE 20 MG TAB PO SCH (12:03)
[2018-04-25] MEDS: OXYBUTYNIN XL 5 MG TAB.ER.24 PO SCH ×2 (12:03→19:55)
[2018-04-25] MEDS: LEVOTHYROXINE 75 MCG TAB PO SCH (12:03)
--- NOTE | 2018-04-25 12:07 | P.CONS ---
History of Present Illness - Reason for Consult Consult date: 04/25/18 dysphagia Requesting physician: Malick Armas - Chief Complaint choking - History of Present Illness 87-year-old female admitted with fatigue acute renal failure and a choking episode after eating chicken too fast. Developed respiratory distress in the emergency room attempts to intubate were initiated however patient started to breath on her own intubation was aborted and incidentally a large chunk of meat was sucked from the oropharyngeal surface. Patient is now eating a sandwich for lunch drinking without any symptoms of odynophagia or dysphagia. no history of dysphagia or odynophagia. No history of recent EGD. Denies hematemesis hematemesis or melena. white count 17 presently 13.3. Hemoglobin 12.5. stool occult blood positive. BUN 36. Creatinine 2.0. Denies abdominal pain or weight loss. Review of Systems Constitutional: Denies fever, chills, sweats, weight gain, or loss. HEENT: Negative for migraines, blurred vision or loss, earaches, drainage, tinnitus, oral mucosal lesions, dysphagia, or odynophagia. CARDIAC: Negative for chest pain, arrhythmias, or palpitation. RESPIRATORY: Negative for shortness of breath, hemoptysis, cough, or sputum production. GI: See HPI for pertinent findings. : Negative for hematuria, urgency, frequency, polyuria, or dysuria. GYNc: Denies possibility of . Negative vaginal discharge. MUSCULOSKELETAL: Negative for muscle aches, swelling, arthritis, and arthralgias. NEUROLOGIC: Negative for stroke or TIA. ENDOCRINE: Negative for thyroid problems. SKIN: Negative for rash or itching. PSYCHIATRIC: Negative history for depression and anxiety Past Medical History Past Medical History: Cancer, Dementia, Hypertension, Memory Impairment, Musculoskeletal Disorder, Thyroid Disorder Additional Past Medical History / Comment(s): 04/24/18 pt wants a pne vaccine this admission. past hx includes . breast cancer-sx only, UTI" had a picc line placed in may 2017 for abx-since removed, bladder and bowel incont History of Any Multi-Drug Resistant Organisms: None Reported Past Surgical History: Hysterectomy, Joint Replacement, Orthopedic Surgery Additional Past Surgical History / Comment(s): bilat knee replacements, isaak hip replacements, bilat feet sx -son belives it was for hammertoe. Right mastectomy. lt shoulder sx, picc line placed 05-27-17-since removed. Past Anesthesia/Blood Transfusion Reactions: No Reported Reaction Smoking Status: Never smoker - Past Family History Mother Family Medical History: Unable to Obtain Medications and Allergies Home Medications Medication Instructions Recorded Confirmed Type ALPRAZolam [Xanax] 0.5 mg PO HS PRN 01/16/17 04/24/18 History Acetaminophen [Tylenol] 650 mg PO Q4H PRN 01/16/17 04/24/18 History Aspirin EC [Ecotrin Low Dose] 81 mg PO DAILY@79901/16/17 04/24/18 History Citalopram Hydrobromide [CeleXA] 20 mg PO DAILY@79901/16/17 04/24/18 History Diclofenac Sodium Gel [Voltaren 4 gm TOPICAL BID@799,199901/16/17 04/24/18 History Gel] Donepezil [Aricept] 5 mg PO HS 01/16/17 04/24/18 History Furosemide [Lasix] 40 mg PO DAILY@79901/16/17 04/24/18 History HYDROcodone/APAP 10-325MG [[place] 1 tab PO BID PRN 01/16/17 04/24/18 History 10-325] Levothyroxine Sodium [Synthroid] 75 mcg PO DAILY@79901/16/17 04/24/18 History Multivitamins, Thera [Multivitamin 1 tab PO DAILY@79901/16/17 04/24/18 History (formulary)] Potassium Chloride ER [K-Dur 10] 10 meq PO DAILY@79901/16/17 04/24/18 History QUEtiapine [SEROquel] 25 mg PO HS@199901/16/17 04/24/18 History White Petrolatum/Mineral Oil 1 applic BOTH EYES HS@199901/16/17 04/24/18 History fentaNYL 75MCG/HR PATCH [Duragesic 1 patch TRANSDERM Q72H 01/16/17 04/24/18 History 75MCG/HR] Acetaminophen Tab [Tylenol Tab] 500 mg PO HS@199904/24/18 04/24/18 History Amoxicillin 2,000 mg PO ONCE PRN 04/24/18 04/24/18 History Artificial Tears-Hypromellose 1 drops BOTH EYES DAILY PRN 04/24/18 04/24/18 History [Artificial Tear Drops] Cyclobenzaprine [Flexeril] 10 mg PO BID PRN 04/24/18 04/24/18 History Gentamicin 0.1% Cream 1 applic TOPICAL DAILY 04/24/18 04/24/18 History Lisinopril [Zestril] 10 mg PO DAILY 04/24/18 04/24/18 History Oxybutynin Chloride [Ditropan XL] 5 mg PO BID@799,199904/24/18 04/24/18 History rOPINIRole HCL 0.5 mg PO HS@199904/24/18 04/24/18 History Allergies Allergy/AdvReac Type Severity Reaction Status Date / Time acetaminophen [From Percocet] Allergy Unknown Verified 04/24/18 13:30 gabapentin Allergy Unknown Verified 04/24/18 13:30 nortriptyline Allergy Unknown Verified 04/24/18 13:30 oxycodone [From Percocet] Allergy Unknown Verified 04/24/18 13:30 sertraline [From Zoloft] Allergy Unknown Verified 04/24/18 13:30 trazodone [From Desyrel] Allergy Unknown Verified 04/24/18 13:30 Physical Exam Vitals: Vital Signs Temp Pulse Pulse Resp BP BP Pulse Ox 04/25/18 11:57 73 16 105/54 96 04/25/18 11:12 18 04/25/18 08:00 71 04/25/18 07:04 99.4 F 71 18 97/55 94 L 04/25/18 06:11 98.9 F 79 16 98/56 96 04/25/18 05:00 77 101/59 96 04/25/18 04:10 76 11 L 98/59 98 04/25/18 04:00 77 17 95/58 99 04/25/18 03:50 79 19 101/63 99 04/25/18 03:40 78 15 92/58 99 04/25/18 03:30 78 19 106/62 98 04/25/18 03:20 77 14 92/57 99 04/25/18 03:10 76 15 104/65 99 04/25/18 03:00 78 16 94/57 98 04/25/18 02:50 77 15 93/59 100 04/25/18 02:40 76 12 96/46 99 04/25/18 02:30 82 17 97/64 100 04/25/18 01:30 77 15 92/51 96 04/25/18 01:10 77 14 97/60 96 04/25/18 01:00 79 10 L 93/37 97 04/25/18 00:50 62 12 99/59 95 04/25/18 00:40 89 17 92/59 97 04/25/18 00:30 84 10 L 96/57 97 04/25/18 00:20 75 17 94/64 97 04/25/18 00:10 80 14 114/61 98 04/25/18 00:00 78 12 102/69 04/24/18 23:40 81 18 101/55 04/24/18 23:30 78 15 110/62 04/24/18 23:20 80 12 108/71 04/24/18 23:10 77 17 103/58 04/24/18 23:00 77 15 100/42 04/24/18 22:50 76 17 95/56 04/24/18 22:40 77 16 92/55 18 22:30 75 6 L 93/64 18 22:20 79 3 L 97/54 18 22:10 77 10 L 112/64 18 22:00 75 12 106/73 18 21:50 62 14 91/71 18 21:40 75 16 117/71 18 21:30 74 14 107/77 18 21:20 76 15 114/66 18 21:10 77 13 111/59 18 21:00 74 16 110/64 04/24/18 20:50 74 15 94/66 04/24/18 20:40 79 18 97/68 18 20:30 74 8 L 104/53 18 20:00 76 17 94/72 18 19:50 77 17 113/68 04/24/18 19:40 71 16 98/70 04/24/18 19:20 77 14 115/86 19/18 19:10 76 14 116/70 18 19:00 75 14 108/80 18 18:50 77 14 81/39 04/24/18 18:30 75 16 97/65 04/24/18 18:00 77 14 95/55 04/24/18 17:50 16 115/68 98 04/24/18 17:40 74 19 110/62 98 04/24/18 17:30 76 18 100/69 69 L 04/24/18 17:23 70 14 106/64 04/24/18 12:42 60 16 127/109 92 L Intake and Output 04/24/18 04/25/18 04/25/18 22:59 06:59 14:59 Output Total 100 Balance -100 Output: Gastric Drainage 100 Other: # Voids 1 General appearance: The patient is alert, oriented, in no acute distress. HET: Head is normocephalic and atraumatic. Pupils are equal and reactive. Oropharynx is clear without lesions. Neck: Supple without lymphadenopathy. Trachea midline. Heart: S1 S2. Regular rate and rhythm. Lungs: No crackles or wheezes are heard. Abdomen: Soft, nontender, nondistended with bowel sounds. No peritoneal signs. No palpable organomegaly or masses. Extremities: Normal skin color and turgor. No cyanosis, rash, ulceration, clubbing, or edema. Radial and pedal pulses are 2/4 bilaterally. Neurological: No focal deficits. Strength and sensation are grossly intact. Results CBC & Chem 7: 04/25/18 08:54 04/25/18 08:54 Labs: Abnormal Lab Results - Last 24 Hours (Table) 04/24/18 04/24/18 04/24/18 Range/Units 12:53 12:53 16:56 WBC 11.1 H (3.8-10.6) k/uL MCHC 30.4 L (31.0-37.0) g/dL Neutrophils # (1.3-7.7) k/uL Lymphocytes # (1.0-4.8) k/uL Carbon Dioxide 20 L (22-30) mmol/L BUN 36 H (7-17) mg/dL Creatinine 2.02 H (0.52-1.04) mg/dL Glucose 214 H (74-99) mg/dL POC Glucose (mg/dL) (75-99) mg/dL AST 37 H (14-36) U/L Stool Occult Blood Positive H (Negative) 11/04/25/18 04/25/18 Range/Units 20:21 07:02 08:54 WBC 17.0 H 13.3 H (3.8-10.6) k/uL MCHC (31.0-37.0) g/dL Neutrophils # 16.0 H 11.7 H (1.3-7.7) k/uL Lymphocytes # 0.3 L 0.7 L (1.0-4.8) k/uL Carbon Dioxide (22-30) mmol/L BUN (7-17) mg/dL Creatinine (0.52-1.04) mg/dL Glucose (74-99) mg/dL POC Glucose (mg/dL) 102 H (75-99) mg/dL AST (14-36) U/L Stool Occult Blood (Negative) 04/25/18 04/25/18 Range/Units 08:54 11:23 WBC (3.8-10.6) k/uL MCHC (31.0-37.0) g/dL Neutrophils # (1.3-7.7) k/uL Lymphocytes # (1.0-4.8) k/uL Carbon Dioxide (22-30) mmol/L BUN 43 H (7-17) mg/dL Creatinine 1.81 H (0.52-1.04) mg/dL Glucose (74-99) mg/dL POC Glucose (mg/dL) 108 H (75-99) mg/dL AST (14-36) U/L Stool Occult Blood (Negative) Assessment and Plan (1) Dysphagia Narrative/Plan: 87-year-old female admitted with acute food dysphagia after eating chicken too fast and positive Hemoccult stool without overt bleeding such as hematemesis hematochezia or melena. Current hemoglobin is 12.5. MCV 96. Underlying esophageal stricture disease possible neoplasm cannot be entirely excluded. Current Visit: Yes Status: Acute Code(s): R13.10 - DYSPHAGIA, UNSPECIFIED SNOMED Code(s): 04878802 Plan: 1. Advise Protonix 40 mg daily. Soft GI diet as tolerated. EGD was discussed with patient at this time she does not wish to pursue inpatient however would advise outpatient EGD. We'll continue to follow with you. Thank you for this kind referral and the opportunity to participate in the care of your patient. This consultation was discussed with Dr. Gill. The impression and plan of care have been directed as dictated.
[2018-04-25] MEDS: LACTATED RINGERS 1,000 ML IV SCH ×2 (16:08→17:29)
[2018-04-25 16:31] LABS: Glucose,Whole Blood 93 mg/dL (75-99)
[2018-04-25] MEDS: DICLOFENAC SODIUM GEL 100 GM TUBE TOPICAL SCH ×2 (17:26→19:54)
[2018-04-25] MEDS: POTASSIUM CHLORIDE ER 10 MEQ TAB.ER.PRT PO SCH (17:29)
--- NOTE | 2018-04-25 19:39 | XR ---
EXAMINATION: XR chest 1V DATE AND TIME: 04/25/2018 6:54 PM CLINICAL INDICATION: choking TECHNIQUE: AP upright portable COMPARISON: 04/24/2018 FINDINGS: The lungs are clear. The pleural spaces are negative. The cardiac silhouette is not enlarged. The remainder of the mediastinal silhouette is unremarkable. The skeletal structures and soft tissues are negative for acute findings. IMPRESSION: NO ACUTE PROCESS.
[2018-04-25] MEDS ORDERED: QUEtiapine 25 MG TAB PO SCH (20:00)
[2018-04-25] MEDS ORDERED: ACETAMINOPHEN TAB 500 MG TAB PO SCH (20:00)
[2018-04-25 20:54] LABS: Glucose,Whole Blood 104 mg/dL (75-99)
[2018-04-25] MEDS: DONEPEZIL 5 MG TAB PO SCH ×2 (21:47)
--- NOTE | 2018-04-25 23:28 | PN ---
PROGRESS NOTE DATE OF SERVICE: 04/25/2018 PRESENTING COMPLAINT: Choking on food. INTERVAL HISTORY: This patient presented with choking on a large piece of meat, admitted for the same. She was also found to have acute renal failure. Prinivil was discontinued. Getting IV fluids. Feels a bit better today, though a bit tired. Lying in bed. REVIEW OF SYSTEMS: Done for constitutional, cardiovascular, GI, pulmonary; relevant findings as above. CURRENT MEDICATIONS: Reviewed. They include IV fluids. PHYSICAL EXAMINATION: Temperature 99.4, pulse 71, respiration 18, blood pressure 97/55, pulse ox 94% on room air. GENERAL APPEARANCE: Lying in bed, tired-appearing. EYES: Pupils equal. Conjunctivae normal. HEENT: External appearance of nose and ears normal. Oral cavity normal. NECK: JVD unable to assess. Mass not palpable. RESPIRATORY: Effort normal. LUNGS: Decreased breath sounds. CARDIOVASCULAR: First and second sounds normal. No edema. ABDOMEN: Soft, non-tender. Liver and spleen not palpable. PSYCHIATRY: Patient is able to answer simple questions. INVESTIGATIONS: White count 13.3, potassium 4.6, BUN 43, creatinine 1.81. ASSESSMENT: 1. Acute renal failure, likely prerenal, from decreased oral intake and patient being on RANDI inhibitors. 2. Junctional rhythm on EKG. 3. Primary osteoarthritis. 4. Mild cognitive impairment from underlying late-onset Alzheimer's dementia. 5. Essential hypertension. 6. Hypovolemia from volume loss. 7. Chronic medical debility. Patient is pretty much wheelchair-bound and uses a Tomasa lift to get in the chair. 8. Restless legs syndrome. 9. Choking episode from a large piece of meat causing acute respiratory distress, greatly improved. PLAN: Care was discussed with the patient. Encouraged to be out of bed. Continue to hydrate the patient. Repeat electrolytes in the morning. Patient's renal ultrasound did show a smaller size of kidneys; that could indicate some element of chronic kidney disease at her baseline. Continue current medication and treatment plan. Will see how much the renal function improves. MMODL / IJN: [id number] /
[2018-04-26 05:49] LABS: Glucose,Whole Blood 90 mg/dL (75-99)
[2018-04-26] MEDS: LACTATED RINGERS 1,000 ML IV SCH ×2 (06:25→15:44)
[2018-04-26 07:24] LABS: Calcium 8.7 mg/dL (8.4-10.2); Potassium 4.4 mmol/L (3.5-5.1)
[2018-04-26] MEDS ORDERED: PANTOPRAZOLE 40 MG TABLET PO SCH (07:30)
[2018-04-26] MEDS: OXYBUTYNIN XL 5 MG TAB.ER.24 PO SCH (09:45)
[2018-04-26] MEDS: LEVOTHYROXINE 75 MCG TAB PO SCH (09:46)
[2018-04-26] MEDS: CITALOPRAM HYDROBROMIDE 20 MG TAB PO SCH (09:46)
[2018-04-26] MEDS: DICLOFENAC SODIUM GEL 100 GM TUBE TOPICAL SCH (09:46)
[2018-04-26] MEDS: ASPIRIN 81 MG PO SCH (09:46)
[2018-04-26] MEDS: MULTIVITAMINS, THERA 1 EACH TAB PO SCH (09:46)
[2018-04-26] MEDS: POTASSIUM CHLORIDE ER 10 MEQ TAB.ER.PRT PO SCH (09:46)
[2018-04-26 13:10] VITALS: RESP 18
[2018-04-26 15:52] VITALS: BP 108/71; PULSE 56; TEMP 99.4
--- NOTE | 2018-04-26 23:59 | DS ---
DISCHARGE SUMMARY DATE OF ADMISSION: 04/24/2018 DATE OF DISCHARGE: 04/26/2018 FINAL DIAGNOSES: 1. Acute respiratory failure from choking on a foreign body, a large piece of meat. 2. Acute renal failure, likely prerenal, from an element of acute tubular necrosis, drug-induced, from being on RANDI inhibitor. 3. Junctional rhythm on EKG. 4. Primary osteoarthritis. 5. Mild cognitive impairment from underlying late-onset Alzheimer's dementia. 6. Essential hypertension. 7. Hypovolemia, probably from volume loss. 8. Chronic medical debility. Patient is wheelchair-bound and uses a Tomasa lift to get in the chair. 9. Restless leg syndrome. HOSPITAL COURSE: This patient presented with a choking episode. As she chomps on her food rather quickly, a large piece of chicken was stuck. She did get a Heimlich maneuver and finally the piece was brought up. She presented to the ER. The patient was found to be in acute renal failure. Creatinine was 2.02. Patient's RANDI inhibitor was discontinued. Creatinine was down to 1.09 this morning. Also patient's diuretics were held off, expecting to go down a bit further. Care was discussed with the patient. Questions were discussed. Patient also had guaiac-positive stool and was seen by Dr. Gill. Will follow up as an outpatient. On examination, temperature 98.2, pulse 69, respiration 18, blood pressure 169/76, pulse ox 94% on room air. It may be noted that patient's blood pressure is currently up and down. May need antihypertensive as an outpatient if blood pressure remains persistently above, though the blood pressure has been running on the lower side here. INVESTIGATIONS: BUN 28, creatinine 1.09. CONSULTATION: Dr. Gill from GI. DISCHARGE MEDICATIONS: 1. Xanax 0.5 p.o. at bedtime p.r.n. 2. Tylenol 650 mg q.4 p.r.n. 3. Aspirin 81 mg a day. 4. Celexa 20 mg a day. 5. Motrin Gel 4 grams topically b.i.d. 6. Aricept 5 mg at bedtime. 7. [place] 10 one tablet b.i.d. p.r.n. 8. Synthroid 75 mcg p.o. daily. 9. Multivitamin 1 tablet p.o. daily. 10.Seroquel 25 mg at bedtime. 11.White Petrolatum/mineral oil topically at bedtime. 12.Duragesic 75 mcg patch every 72 hours. 13.Tylenol. 14.Artificial Tears 1 drop both eyes daily p.r.n. 15.Flexeril 10 mg p.o. b.i.d. p.r.n. 16.Gentamicin 0.1% cream topically daily. 17.Ditropan XL 5 mg p.o. b.i.d. 18.Ropinirole 0.5 mg p.o. at bedtime. Follow up with Dr. Parekh in 2 days. [facility] on 05/01/2018. Patient is advised to eat her diet in small bites and chew her food. Recheck blood pressure daily. Discussion and discharge planning more than 35 minutes. MMDANIELL / GISELLEN: [id number] /
== END 2018-04-26 16:38 | DRG 154 ==
LOC: EC 12:42 → 1SOBS 14:03 → 3SCARD 17:31 → OBSVTOIN 04-25 15:04
PROVIDERS: ADMIT Hospitalist; ATTEND Hospitalist
PROC: 0CCM7ZZ Extirpation of Matter from Pharynx, Via Natural or Artificial Opening (ICD-10-PCS; principal; 2018-04-24)
DX: T17.220A Food in pharynx causing asphyxiation, initial encounter (principal); J96.00 Acute respiratory failure, unspecified whether with hypoxia or hypercapnia; N17.0 Acute kidney failure with tubular necrosis; Z66 Do not resuscitate; G30.1 Alzheimer's disease with late onset; F02.80 Dementia in other diseases classified elsewhere, unspecified severity, without behavioral disturbance, psychotic disturbance, mood disturbance, and anxiety; I10 Essential (primary) hypertension; E86.1 Hypovolemia; R13.10 Dysphagia, unspecified; T46.4X5A Adverse effect of angiotensin-converting-enzyme inhibitors, initial encounter; G25.81 Restless legs syndrome; E03.9 Hypothyroidism, unspecified; M19.91 Primary osteoarthritis, unspecified site; R15.9 Full incontinence of feces; R32 Unspecified urinary incontinence; F41.9 Anxiety disorder, unspecified; Z79.82 Long term (current) use of aspirin; Z79.890 Hormone replacement therapy; Z79.891 Long term (current) use of opiate analgesic; Z79.899 Other long term (current) drug therapy; Z90.11 Acquired absence of right breast and nipple; Z85.3 Personal history of malignant neoplasm of breast; Z96.653 Presence of artificial knee joint, bilateral; Z87.440 Personal history of urinary (tract) infections; Z99.3 Dependence on wheelchair; Z96.641 Presence of right artificial hip joint; Z90.710 Acquired absence of both cervix and uterus; Z88.6 Allergy status to analgesic agent; Z88.8 Allergy status to other drugs, medicaments and biological substances
CPT/HCPCS: 36415; 71045; 71046; 76770; 80048; 80053; 82272; 85025; 85610; 85730; 93005; 96374; 96376; 99291

== ENCOUNTER → 2018-08-23 | Outpatient (CLI) | payer MEDICARE, BC ==
--- NOTE | 2018-08-23 12:41 | FL ---
Modified barium swallow. HISTORY: Dysphagia. Modified barium swallow was performed with the department of speech pathology. The patient was prese nted with various consistencies of barium. There is no evidence for aspiration or penetration. Full report is to follow from the department of speech pathology. Impression: Normal study.
== END | disposition home or self-care (01) ==
LOC: RADFLMAIN 11:10
PROVIDERS: ATTEND Nurse Practitioner Family
DX: R13.12 Dysphagia, oropharyngeal phase (principal)
CPT/HCPCS: 74230